=== PATIENT | female | born 1950 | race African-American/Black ===

== ENCOUNTER 2019-10-14 08:44 | Inpatient (IN) | payer MEDICARE, OTHER ==
[2019-10-14] VITALS (30 sets, daily range): BP systolic 65–129; BP diastolic 39–83
[~2019-10-14] VITALS: Ht 172.7 cm; Wt 148.3 kg
[2019-10-14] MEDS ORDERED: SODIUM CHLORIDE 0.9% 1,000 ML IV ONE ×2 (09:13→16:30)
[2019-10-14 09:35] LABS: BASOPHILS % 0.8 % (0.0-2.0); EOSINOPHILS % 0.2 % (0.0-5.0); HEMATOCRIT. 44.3 % (36.0-48.0); HEMOGLOBIN. 14.4 g/dL (12.0-16.0); LYMPHOCYTES % 9.8 % (20.0-50.0); MEAN CORPUSCULAR HEMOGLOBIN 32.7 pg (28.0-32.0); MEAN CORPUSCULAR VOLUME 100.5 fL (81.0-99.0); MEAN PLATELET VOLUME 8.9 fl (7.4-10.4); MONOCYTES % 12.1 % (2.0-8.0); NEUTROPHILS % 77.1 % (40.0-76.0); PLATELET 223 x1000/uL (130-400); RED BLOOD CELL COUNT 4.41 mill/uL (4.2-5.4); RED CELL DISTRIBUTION WIDTH 16.1 % (11.6-14.6)
[2019-10-14 09:38] LABS: CHLORIDE 104 mEq/L (98-107); INR 2.4; PROTHROMBIN TIME 23.8 sec (9.6-11.0)
[2019-10-14] MEDS ORDERED: PIPERACILLIN/TAZ 3.375G PREMIX 50 ML IV ONE (10:15)
[2019-10-14] MEDS ORDERED: SODIUM CHLORIDE 0.9% 1000ML BAG (SEPSIS BOLUS) IV ONE (10:15)
[2019-10-14 10:59] LABS: CLARITY URINE CLEAR (CLEAR); COLOR URINE YELLOW (YELLOW); KETONES URINE TRACE (NEGATIVE); LEUKOCYTE ESTERASE URINE TRACE (NEGATIVE); NITRITE URINE NEGATIVE (NEGATIVE); OCCULT BLOOD URINE NEGATIVE (NEGATIVE); PH URINE 5.5 (4.5-8.0); PROTEIN URINE NEGATIVE (NEGATIVE); SPECIFIC GRAVITY URINE 1.016 (1.005-1.030)
[2019-10-14] MEDS ORDERED: ACETAMINOPHEN 325MG TABLET PO ONE (11:15)
[2019-10-14] MEDS ORDERED: IBUPROFEN 400MG TABLET PO ONE (12:30)
[2019-10-14] MEDS ORDERED: ACETAMINOPHEN 325MG TABLET PO PRN (13:00)
[2019-10-14] MEDS ORDERED: ONDANSETRON HCL 4MG/2ML INJ IV PRN ×2 (13:00→16:15)
[2019-10-14] MEDS ORDERED: PIPERACILLIN/TAZOBACTAM 3.375 G in DEXT 5% WATER 100 ML IV SCH (13:00)
[2019-10-14] MEDS ORDERED: CEFTRIAXONE 1 G PREMIX 50 ML IV NR (14:30)
[2019-10-14] MEDS ORDERED: DEXTROSE 50% WATER 50ML SYRINGE IV PRN (14:45)
[2019-10-14] MEDS: SODIUM CHLORIDE 0.9% 1,000 ML IV SCH ×2 (16:01→19:11)
[2019-10-14] MEDS ORDERED: LORAZEPAM 2MG/ML CPJ IV PRN (16:15)
[2019-10-14] MEDS ORDERED: ENOXAPARIN 40MG/0.4ML SYR SUBCUT SCH (16:15)
[2019-10-14] MEDS ORDERED: HYDROCODONE/ACETAMINOPHEN 5/325MG TABLET PO PRN ×2 (16:15→16:30)
[2019-10-14] MEDS ORDERED: MORPHINE SULFATE 2 MG/ML CPJ (NOT FOR IM USE) IV PRN ×3 (16:15→16:30)
[2019-10-14] MEDS ORDERED: SODIUM CHLORIDE 0.9% 1,000 ML IV SCH (16:30)
[2019-10-14] MEDS ORDERED: NOREPINEPHRINE 8 MG in DEXT 5% WATER 242 ML IV PRN (16:45)
[2019-10-14] MEDS ORDERED: PIPERACILLIN/TAZOBACTAM 2.25 G in DEXTROSE 5% WATER 50 ML IV SCH ×2 (17:00→21:00)
[2019-10-14] MEDS ORDERED: METHYLPREDNISOLONE SOD SUCC 125 MG/2 ML VIAL IV SCH (17:00)
[2019-10-14] MEDS ORDERED: WARF-53 PO (17:33)
[2019-10-14] MEDS ORDERED: FAMO40TA7 PO (17:33)
[2019-10-14] MEDS ORDERED: ASPI-1393 PO (17:33)
[2019-10-14] MEDS ORDERED: POTA10CA42 PO (17:33)
[2019-10-14] MEDS ORDERED: FERR-71 PO (17:33)
[2019-10-14] MEDS ORDERED: GABA-531 PO (17:33)
[2019-10-14] MEDS ORDERED: ATOR-2 PO (17:33)
[2019-10-14] MEDS ORDERED: METF-416 PO (17:33)
[2019-10-14] MEDS ORDERED: LISI-604 PO (17:33)
[2019-10-14] MEDS ORDERED: FURO-151 PO (17:33)
[2019-10-14] MEDS ORDERED: GLIP10TA3 PO (17:33)
[2019-10-14] MEDS: BLOOD SUGAR DIAGNOSTIC STRIP TEST SCH ×2 (17:50→21:38)
[2019-10-14] MEDS: INSULIN LISPRO 100 UNITS/ML SUBCUT SCH ×2 (19:03→21:42)
[2019-10-14 23:09] LABS: CREATINE KINASE 226 IU/L (26-192)
[2019-10-14 23:10] LABS: CREATINE KINASE MB FRACTION 1.1 ng/mL (0.5-3.6)
[2019-10-15] VITALS (93 sets, daily range): BP systolic 73–147; BP diastolic 31–119
[2019-10-15] MEDS: CEFTRIAXONE 1 G PREMIX 50 ML IV SCH (03:07)
[2019-10-15] MEDS: INSULIN LISPRO 100 UNITS/ML SUBCUT SCH ×4 (06:59→21:17)
[2019-10-15 07:39] LABS: HEMATOCRIT. 43.2 % (36.0-48.0); MEAN CORPUSCULAR VOLUME 101.9 fL (81.0-99.0); MEAN PLATELET VOLUME 8.7 fl (7.4-10.4); PLATELET 196 x1000/uL (130-400); RED BLOOD CELL COUNT 4.24 mill/uL (4.2-5.4); RED CELL DISTRIBUTION WIDTH 16.3 % (11.6-14.6)
[2019-10-15 07:45] LABS: PROTHROMBIN TIME 19.9 sec (9.6-11.0)
[2019-10-15] MEDS: BLOOD SUGAR DIAGNOSTIC STRIP TEST SCH ×4 (07:45→21:12)
[2019-10-15 07:47] LABS: CHLORIDE 108 mEq/L (98-107)
[2019-10-15 07:59] LABS: CREATINE KINASE 174 IU/L (26-192)
[2019-10-15 08:01] LABS: CREATINE KINASE MB FRACTION 1.1 ng/mL (0.5-3.6)
[2019-10-15 08:14] LABS: PLATELET ESTIMATE NORMAL
[2019-10-15] MEDS: FOLIC ACID 1MG TABLET PO SCH (08:49)
[2019-10-15] MEDS: SODIUM CHLORIDE 0.9% 1,000 ML IV SCH (08:49)
[2019-10-15] MEDS: ASPIRIN 81MG EC TABLET PO SCH (09:00)
[2019-10-15] MEDS ORDERED: LIDOCAINE HCL 1% 20ML VIAL (Pyxis) INJ ONE (10:59)
[2019-10-15] MEDS: METHYLPREDNISOLONE SOD SUCC 40 MG/ML VIAL IV SCH ×2 (13:07→21:22)
[2019-10-15] MEDS: FAMOTIDINE 20MG TABLET PO SCH (21:17)
[2019-10-15] MEDS: INSULIN GLARGINE UD 100 UNITS/ML SYR SUBCUT SCH (21:17)
[2019-10-15] MEDS: ATORVASTATIN CALCIUM 40MG TABLET PO SCH (21:18)
[2019-10-16] VITALS (36 sets, daily range): BP systolic 102–157; BP diastolic 26–93
[2019-10-16] MEDS: CEFTRIAXONE 1 G PREMIX 50 ML IV SCH (02:23)
[2019-10-16] MEDS: METHYLPREDNISOLONE SOD SUCC 40 MG/ML VIAL IV SCH ×3 (05:57→21:30)
[2019-10-16 06:19] LABS: HEMATOCRIT. 40.6 % (36.0-48.0); HEMOGLOBIN. 13.3 g/dL (12.0-16.0); MEAN CORPUSCULAR HEMOGLOBIN 33.2 pg (28.0-32.0); MEAN CORPUSCULAR VOLUME 101.6 fL (81.0-99.0); MEAN PLATELET VOLUME 8.9 fl (7.4-10.4); PLATELET 198 x1000/uL (130-400); RED CELL DISTRIBUTION WIDTH 16.4 % (11.6-14.6)
[2019-10-16] MEDS: SODIUM CHLORIDE 0.9% 1,000 ML IV SCH (07:13)
[2019-10-16] MEDS: ASPIRIN 81MG EC TABLET PO SCH (08:26)
[2019-10-16] MEDS: BLOOD SUGAR DIAGNOSTIC STRIP TEST SCH ×4 (08:26→21:29)
[2019-10-16] MEDS: FOLIC ACID 1MG TABLET PO SCH (08:27)
[2019-10-16] MEDS: INSULIN LISPRO 100 UNITS/ML SUBCUT SCH ×3 (08:27→21:36)
[2019-10-16 08:28] LABS: PLATELET ESTIMATE NORMAL
[2019-10-16] MEDS ORDERED: LACTULOSE 20G/30ML UDC PO NR (10:45)
[2019-10-16] MEDS: AZITHROMYCIN 500 MG in DEXT 5% WATER 250 ML IV SCH (11:38)
[2019-10-16] MEDS ORDERED: WARFARIN SODIUM 5MG TABLET PO SCH (18:00)
[2019-10-16] MEDS: FAMOTIDINE 20MG TABLET PO SCH (21:30)
[2019-10-16] MEDS: ATORVASTATIN CALCIUM 40MG TABLET PO SCH (21:30)
[2019-10-16] MEDS: GUAIFENESIN 600MG ER TABLET PO SCH (21:31)
[2019-10-16] MEDS: IPRATROPIUM/ALBUTEROL 0.5-3(2.5)MG/3ML NEB NEB PRN (22:13)
[2019-10-16] MEDS: INSULIN GLARGINE UD 100 UNITS/ML SYR SUBCUT SCH (22:54)
[2019-10-17] VITALS: BP 143/75
[2019-10-17] MEDS: CEFTRIAXONE 1 G PREMIX 50 ML IV SCH (02:44)
[2019-10-17 04:00] VITALS: BP 142/75
[2019-10-17] MEDS: METHYLPREDNISOLONE SOD SUCC 40 MG/ML VIAL IV SCH ×3 (06:07→21:58)
[2019-10-17 06:46] LABS: INR 1.8; PROTHROMBIN TIME 17.7 sec (9.6-11.0)
[2019-10-17] MEDS: INSULIN LISPRO 100 UNITS/ML SUBCUT SCH ×4 (06:54→21:41)
[2019-10-17] MEDS: BLOOD SUGAR DIAGNOSTIC STRIP TEST SCH ×4 (06:54→21:35)
[2019-10-17 07:28] LABS: HEMATOCRIT. 45.2 % (36.0-48.0); HEMOGLOBIN. 14.5 g/dL (12.0-16.0); MEAN CORPUSCULAR HEMOGLOBIN 32.4 pg (28.0-32.0); MEAN CORPUSCULAR VOLUME 100.7 fL (81.0-99.0); MEAN PLATELET VOLUME 9.5 fl (7.4-10.4); PLATELET 195 x1000/uL (130-400); RED BLOOD CELL COUNT 4.49 mill/uL (4.2-5.4); RED CELL DISTRIBUTION WIDTH 16.1 % (11.6-14.6)
[2019-10-17] MEDS: GUAIFENESIN 600MG ER TABLET PO SCH ×2 (09:00→21:37)
[2019-10-17] MEDS: FOLIC ACID 1MG TABLET PO SCH (09:00)
[2019-10-17] MEDS: ASPIRIN 81MG EC TABLET PO SCH (09:00)
[2019-10-17] MEDS: AZITHROMYCIN 500 MG in DEXT 5% WATER 250 ML IV SCH (12:00)
[2019-10-17 12:16] LABS: NUCLEATED RED BLOOD CELLS 1 /100 WBC; PLATELET ESTIMATE NORMAL
[2019-10-17 16:00] VITALS: BP 103/64
[2019-10-17] MEDS ORDERED: WARFARIN SODIUM 3MG TABLET PO NR (18:00)
[2019-10-17 18:40] LABS: BG BASE EXCESS 0.2 mmol/L (-2.0-2.0); BG CARBOXYHEMOGLOBIN 0.9 % (0.5-1.5); BG DEOXYHEMOGLOBIN 15.7 % (0.0-5.0); BG FRACTION INSPIRED OXYGEN 21; BG HCO3 ACT 24.3 mmol/L (22.0-26.0); BG METHEMOGLOBIN 0.6 % (0.0-1.5); BG OXYGEN SATURATION 84.1 % (92.0-98.5); BG OXYHEMOGLOBIN 82.8 % (94.0-97.0); BG PCO2 37.7 mmHg (35.0-45.0); BG PH 7.427 (7.350-7.450); BG PO2 48.2 mmHg (75.0-100.0); BG SAMPLE SITE RIGHT RADIAL; BG TOTAL HEMOGLOBIN 14.7 g/dL (12.0-18.0); BG VENT MODE ROOM AIR
[2019-10-17 20:00] VITALS: BP 106/53
[2019-10-17] MEDS: IPRATROPIUM/ALBUTEROL 0.5-3(2.5)MG/3ML NEB NEB PRN (21:08)
[2019-10-17] MEDS: ATORVASTATIN CALCIUM 40MG TABLET PO SCH (21:37)
[2019-10-17] MEDS: FAMOTIDINE 20MG TABLET PO SCH (21:37)
[2019-10-17] MEDS: INSULIN GLARGINE UD 100 UNITS/ML SYR SUBCUT SCH (22:07)
[2019-10-18] VITALS: BP 131/62
[2019-10-18] MEDS: CEFTRIAXONE 1 G PREMIX 50 ML IV SCH (01:24)
[2019-10-18 04:00] VITALS: BP 129/78
[2019-10-18] MEDS: METHYLPREDNISOLONE SOD SUCC 40 MG/ML VIAL IV SCH ×3 (05:48→21:45)
[2019-10-18] MEDS: INSULIN LISPRO 100 UNITS/ML SUBCUT SCH ×4 (05:50→21:51)
[2019-10-18] MEDS: BLOOD SUGAR DIAGNOSTIC STRIP TEST SCH ×4 (05:54→20:42)
[2019-10-18 07:45] LABS: HEMATOCRIT. 44.8 % (36.0-48.0); HEMOGLOBIN. 14.4 g/dL (12.0-16.0); MEAN CORPUSCULAR HEMOGLOBIN 32.5 pg (28.0-32.0); MEAN CORPUSCULAR VOLUME 100.7 fL (81.0-99.0); MEAN PLATELET VOLUME 8.8 fl (7.4-10.4); PLATELET 173 x1000/uL (130-400); RED BLOOD CELL COUNT 4.44 mill/uL (4.2-5.4); RED CELL DISTRIBUTION WIDTH 16.3 % (11.6-14.6)
[2019-10-18 07:50] LABS: INR 2.4; PROTHROMBIN TIME 23.8 sec (9.6-11.0)
[2019-10-18 08:00] VITALS: BP 126/82
[2019-10-18] MEDS: FOLIC ACID 1MG TABLET PO SCH (09:21)
[2019-10-18] MEDS: ASPIRIN 81MG EC TABLET PO SCH (09:21)
[2019-10-18] MEDS: GUAIFENESIN 600MG ER TABLET PO SCH ×2 (09:21→21:19)
[2019-10-18] MEDS: INSULIN GLARGINE UD 100 UNITS/ML SYR SUBCUT SCH ×2 (10:56→21:51)
[2019-10-18] MEDS ORDERED: FUROSEMIDE 40MG/4ML VIAL IVP NR (11:00)
[2019-10-18] MEDS ORDERED: ONDANSETRON HCL 4MG/2ML INJ IV PRN (11:15)
[2019-10-18 12:00] VITALS: BP 100/61
[2019-10-18] MEDS: AZITHROMYCIN 500 MG in DEXT 5% WATER 250 ML IV SCH (13:24)
[2019-10-18 14:42] LABS: PLATELET ESTIMATE NORMAL
[2019-10-18 16:00] VITALS: BP 100/63
[2019-10-18] MEDS ORDERED: WARFARIN SODIUM 5MG TABLET PO SCH (18:00)
[2019-10-18 20:00] VITALS: BP 107/68
[2019-10-18] MEDS: ATORVASTATIN CALCIUM 40MG TABLET PO SCH (21:19)
[2019-10-18] MEDS: FAMOTIDINE 20MG TABLET PO SCH (21:19)
[2019-10-19] VITALS (7 sets, daily range): BP systolic 98–121; BP diastolic 60–79
[2019-10-19] MEDS: CEFTRIAXONE 1 G PREMIX 50 ML IV SCH (01:07)
[2019-10-19] MEDS: METHYLPREDNISOLONE SOD SUCC 40 MG/ML VIAL IV SCH (05:53)
[2019-10-19] MEDS: BLOOD SUGAR DIAGNOSTIC STRIP TEST SCH ×4 (06:19→21:00)
[2019-10-19] MEDS: INSULIN LISPRO 100 UNITS/ML SUBCUT SCH ×4 (06:26→21:40)
[2019-10-19 07:59] LABS: INR 3.5; PROTHROMBIN TIME 33.9 sec (9.6-11.0)
[2019-10-19 08:23] LABS: *BARBITURATES SCREEN URINE NEGATIVE (NEGATIVE); CANNABINOID URINE SCREEN NEGATIVE (NEGATIVE); OPIATES URINE SCREEN NEGATIVE (NEGATIVE); PHENCYCLIDINE URINE SCREEN NEGATIVE (NEGATIVE)
[2019-10-19 08:24] LABS: *AMPHETAMINES SCREEN URINE NEGATIVE (NEGATIVE); *BENZODIAZEPINES SCREEN URINE NEGATIVE (NEGATIVE); *COCAINE SCREEN URINE NEGATIVE (NEGATIVE); METHADONE URINE SCREEN NEGATIVE (NEGATIVE)
[2019-10-19] MEDS: ASPIRIN 81MG EC TABLET PO SCH (09:13)
[2019-10-19] MEDS: FOLIC ACID 1MG TABLET PO SCH (09:13)
[2019-10-19] MEDS: GUAIFENESIN 600MG ER TABLET PO SCH ×2 (09:32→21:15)
[2019-10-19] MEDS: INSULIN GLARGINE UD 100 UNITS/ML SYR SUBCUT SCH ×2 (10:09→22:13)
[2019-10-19] MEDS: AZITHROMYCIN 500 MG in DEXT 5% WATER 250 ML IV SCH (11:37)
[2019-10-19] MEDS ORDERED: FLUT1DIS3 INH (11:54)
[2019-10-19] MEDS ORDERED: ALBU18HF2 IH (11:54)
[2019-10-19] MEDS: FUROSEMIDE 40MG/4ML VIAL IVP SCH (13:12)
[2019-10-19] MEDS: ATORVASTATIN CALCIUM 40MG TABLET PO SCH (21:15)
[2019-10-19] MEDS: FAMOTIDINE 20MG TABLET PO SCH (21:15)
[2019-10-20] VITALS: BP 118/68
[2019-10-20] MEDS: CEFTRIAXONE 1 G PREMIX 50 ML IV SCH (00:45)
[2019-10-20 04:00] VITALS: BP 120/66
[2019-10-20] MEDS: BLOOD SUGAR DIAGNOSTIC STRIP TEST SCH ×4 (06:41→20:39)
[2019-10-20] MEDS: INSULIN LISPRO 100 UNITS/ML SUBCUT SCH ×4 (06:43→20:39)
[2019-10-20 08:57] VITALS: BP 109/49
[2019-10-20] MEDS ORDERED: PREDNISONE 20MG TABLET PO SCH (09:00)
[2019-10-20] MEDS: FUROSEMIDE 40MG/4ML VIAL IVP SCH (10:15)
[2019-10-20] MEDS: FOLIC ACID 1MG TABLET PO SCH (10:16)
[2019-10-20] MEDS: ASPIRIN 81MG EC TABLET PO SCH (10:16)
[2019-10-20] MEDS: GUAIFENESIN 600MG ER TABLET PO SCH ×2 (10:16→20:59)
[2019-10-20] MEDS: INSULIN GLARGINE UD 100 UNITS/ML SYR SUBCUT SCH ×2 (10:33→21:59)
[2019-10-20 11:41] LABS: PROTHROMBIN TIME 50.2 sec (9.6-11.0)
[2019-10-20 12:25] VITALS: BP 125/72
[2019-10-20 12:48] LABS: INR 5.3
[2019-10-20] MEDS: AZITHROMYCIN 500 MG in DEXT 5% WATER 250 ML IV SCH (13:23)
[2019-10-20 15:16] LABS: HEMOGLOBIN. 13.7 g/dL (12.0-16.0); MEAN CORPUSCULAR HEMOGLOBIN 32.6 pg (28.0-32.0); MEAN CORPUSCULAR VOLUME 100.1 fL (81.0-99.0); MEAN PLATELET VOLUME 9.5 fl (7.4-10.4); PLATELET 199 x1000/uL (130-400); RED CELL DISTRIBUTION WIDTH 16.2 % (11.6-14.6)
[2019-10-20 16:28] VITALS: BP 117/61
[2019-10-20 16:35] LABS: PROTHROMBIN TIME 49.5 sec (9.6-11.0)
[2019-10-20 16:40] LABS: INR 5.2
[2019-10-20 17:00] LABS: PLATELET ESTIMATE NORMAL
[2019-10-20] MEDS: FAMOTIDINE 20MG TABLET PO SCH (20:58)
[2019-10-20] MEDS: ATORVASTATIN CALCIUM 40MG TABLET PO SCH (20:59)
[2019-10-20 21:06] VITALS: BP 124/66
== END 2019-10-20 22:42 | disposition short-term general hospital (02) | DRG 871 ==
LOC: ER 09:05 → 5EST 11:14 → EDBEDREQTM 11:17 → EDBEDREQ 11:17 → ENRESERV 12:14 → CVICU 16:40 → 8WST 10-16 13:10
PROVIDERS: ADMIT Internal Medicine Nephrology; ATTEND Internal Medicine Nephrology
DX: A41.9 Sepsis, unspecified organism (principal); R65.21 Severe sepsis with septic shock; N17.0 Acute kidney failure with tubular necrosis; I50.33 Acute on chronic diastolic (congestive) heart failure; J18.9 Pneumonia, unspecified organism; J96.21 Acute and chronic respiratory failure with hypoxia; E44.0 Moderate protein-calorie malnutrition; E87.2 Acidosis; D68.9 Coagulation defect, unspecified; Z68.42 Body mass index [BMI] 45.0-49.9, adult; I11.0 Hypertensive heart disease with heart failure; E78.5 Hyperlipidemia, unspecified; E11.9 Type 2 diabetes mellitus without complications; S30.1XXA Contusion of abdominal wall, initial encounter; X58.XXXA Exposure to other specified factors, initial encounter; K80.20 Calculus of gallbladder without cholecystitis without obstruction; R59.0 Localized enlarged lymph nodes; K76.0 Fatty (change of) liver, not elsewhere classified; T45.515A Adverse effect of anticoagulants, initial encounter; E78.00 Pure hypercholesterolemia, unspecified; F17.200 Nicotine dependence, unspecified, uncomplicated; K44.9 Diaphragmatic hernia without obstruction or gangrene; Z79.84 Long term (current) use of oral hypoglycemic drugs; Y93.89 Activity, other specified; Y92.89 Other specified places as the place of occurrence of the external cause; Y99.8 Other external cause status; Z79.01 Long term (current) use of anticoagulants; Z86.711 Personal history of pulmonary embolism; Z82.49 Family history of ischemic heart disease and other diseases of the circulatory system; Z90.49 Acquired absence of other specified parts of digestive tract; Z79.899 Other long term (current) drug therapy; Z79.82 Long term (current) use of aspirin; Z88.8 Allergy status to other drugs, medicaments and biological substances
CPT/HCPCS: 36415; 36600; 71045; 71250; 74176; 76536; 76770; 78580; 80048; 80305; 81003; 82375; 82550; 82553; 82805; 82962; 83036; 83605; 83880; 84145; 84484; 85379; 87804; 93005; 93306; 93970; 96365; 96375; 97162; 97166; 97530; 99291; J0456; J0696; J1815; J1940; J2405; J2543; J2920; J2930; J3490; J7030; J7040; J7060; J7620

== ENCOUNTER 2020-01-08 06:18 | Emergency (ER) | payer MEDICARE, OTHER ==
[~2020-01-08] VITALS: Ht 170.2 cm; Wt 135.8 kg
[~2020-01-08 06:18] MED LIST: ALBU18HF2 IH; ASPI-1497 PO; ATOR-2 PO; FAMO40TA7 PO; FERR-71 PO; FLUT1DIS3 INH; FURO-151 PO; GABA-531 PO; GLIP10TA3 PO; LISI-604 PO; METF-416 PO; POTA10CA42 PO; WARF-53 PO
[2020-01-08] MEDS ORDERED: ACETAMINOPHEN 325MG TABLET PO STA (06:37)
[2020-01-08] MEDS ORDERED: VANCOMYCIN 1 G PREMIX 200 ML IV ONE (06:45)
[2020-01-08] MEDS ORDERED: SODIUM CHLORIDE 0.9% 1000ML BAG (SEPSIS BOLUS) IV ONE (06:45)
[2020-01-08] MEDS ORDERED: PIPERACILLIN/TAZ 3.375G PREMIX 50 ML IV ONE (06:45)
[2020-01-08 07:14] LABS: HEMATOCRIT. 41.5 % (36.0-48.0); HEMOGLOBIN. 13.6 g/dL (12.0-16.0); MEAN CORPUSCULAR HEMOGLOBIN 31.8 pg (28.0-32.0); MEAN CORPUSCULAR VOLUME 97.3 fL (81.0-99.0); MEAN PLATELET VOLUME 8.8 fl (7.4-10.4); PLATELET 201 x1000/uL (130-400); RED BLOOD CELL COUNT 4.27 mill/uL (4.2-5.4); RED CELL DISTRIBUTION WIDTH 17.1 % (11.6-14.6)
[2020-01-08 07:21] LABS: INR 1.2; PROTHROMBIN TIME 12.9 sec (9.6-11.0)
[2020-01-08 07:22] LABS: CHLORIDE 105 mEq/L (98-107)
[2020-01-08 08:12] LABS: PLATELET ESTIMATE NORMAL
[2020-01-08] MEDS ORDERED: ONDANSETRON HCL 4MG/2ML INJ IV STA (10:20)
[2020-01-08] MEDS ORDERED: MORPHINE SULFATE 4 MG/ML CPJ (NOT FOR IM USE) IV STA (10:20)
[2020-01-08 12:54] LABS: CLARITY URINE CLOUDY (CLEAR); COLOR URINE YELLOW (YELLOW); KETONES URINE NEGATIVE (NEGATIVE); LEUKOCYTE ESTERASE URINE NEGATIVE (NEGATIVE); NITRITE URINE NEGATIVE (NEGATIVE); OCCULT BLOOD URINE NEGATIVE (NEGATIVE); PROTEIN URINE 1+ (NEGATIVE); SPECIFIC GRAVITY URINE 1.017 (1.005-1.030); UROBILINOGEN URINE 0.2 E.U./dL (0.2-1.0)
[2020-01-08 16:32] VITALS: BP 146/67
== END 2020-01-08 17:05 | disposition short-term general hospital (02) ==
LOC: ER 06:18
DX: A41.9 Sepsis, unspecified organism (principal); E11.65 Type 2 diabetes mellitus with hyperglycemia; N28.9 Disorder of kidney and ureter, unspecified; E87.2 Acidosis; I10 Essential (primary) hypertension; Z88.5 Allergy status to narcotic agent; Z79.82 Long term (current) use of aspirin; Z79.84 Long term (current) use of oral hypoglycemic drugs
CPT/HCPCS: 36415; 71045; 74176; 80053; 81003; 82962; 83605; 85025; 85610; 87040; 87086; 87804; 93005; 96365; 96366; 96368; 96375; 99291; J2270; J2405; J2543; J3370; J7030; Z7610

== ENCOUNTER 2020-03-22 08:31 | Inpatient (IN) | payer MEDICARE, OTHER ==
[2020-03-22] VITALS (36 sets, daily range): BP systolic 61–140; BP diastolic 41–76
[~2020-03-22] VITALS: Ht 172.7 cm; Wt 134.4 kg
[2020-03-22] MEDS ORDERED: DEXTROSE 50% WATER 50ML SYRINGE IV ONE ×2 (08:56→10:00)
[2020-03-22] MEDS ORDERED: PIPERACILLIN/TAZ 3.375G PREMIX 50 ML IV ONE (09:15)
[2020-03-22] MEDS ORDERED: VANCOMYCIN 1 G PREMIX 200 ML IV ONE (09:15)
[2020-03-22] MEDS ORDERED: SODIUM CHLORIDE 0.9% 1000ML BAG (SEPSIS BOLUS) IV ONE (09:15)
[2020-03-22 09:16] LABS: BASOPHILS % 0.6 % (0.0-2.0); EOSINOPHILS % 0.9 % (0.0-5.0); HEMATOCRIT. 34.8 % (36.0-48.0); HEMOGLOBIN. 11.2 g/dL (12.0-16.0); LYMPHOCYTES % 20.9 % (20.0-50.0); MEAN CORPUSCULAR HEMOGLOBIN 30.9 pg (28.0-32.0); MEAN CORPUSCULAR VOLUME 96.3 fL (81.0-99.0); MEAN PLATELET VOLUME 8.8 fl (7.4-10.4); MONOCYTES % 7.7 % (2.0-8.0); NEUTROPHILS % 69.9 % (40.0-76.0); PLATELET 264 x1000/uL (130-400); RED BLOOD CELL COUNT 3.62 mill/uL (4.2-5.4); RED CELL DISTRIBUTION WIDTH 18.3 % (11.6-14.6)
[2020-03-22] MEDS ORDERED: KETOROLAC 30MG/ML VIAL IV ONE (09:30)
[2020-03-22 09:34] LABS: CHLORIDE 106 mEq/L (98-107)
[2020-03-22] MEDS ORDERED: FUROSEMIDE 100MG/10ML VIAL IV STA (09:54)
[2020-03-22] MEDS ORDERED: CALCIUM CHLORIDE 1GM/10ML SYR IV ONE (10:00)
[2020-03-22] MEDS ORDERED: ALBUTEROL (0.083%) 2.5MG/3ML NEB HHN ONE (10:00)
[2020-03-22] MEDS ORDERED: ACETAMINOPHEN 325MG TABLET PO ONE (10:00)
[2020-03-22] MEDS ORDERED: SODIUM BICARBONATE 8.4% 1 MEQ/ML 50ML SYR IV ONE (10:00)
[2020-03-22 10:12] LABS: PROTHROMBIN TIME > 100.0 sec (9.6-11.0)
[2020-03-22 10:14] LABS: INR > 10.0
[2020-03-22 10:26] LABS: CLARITY URINE CLOUDY (CLEAR); COLOR URINE YELLOW (YELLOW); KETONES URINE TRACE (NEGATIVE); LEUKOCYTE ESTERASE URINE 2+ (NEGATIVE); NITRITE URINE NEGATIVE (NEGATIVE); OCCULT BLOOD URINE 2+ (NEGATIVE); PH URINE 5.5 (4.5-8.0); PROTEIN URINE TRACE (NEGATIVE); SPECIFIC GRAVITY URINE 1.019 (1.005-1.030)
[2020-03-22 11:52] LABS: D-DIMER < 0.19 mg/L FEU (<0.50); FIBRINOGEN 243 mg/dL (200-400)
[2020-03-22] MEDS ORDERED: TRAMADOL 50MG TABLET PO PRN (12:00)
[2020-03-22] MEDS ORDERED: DEXTROSE 50% WATER 50ML SYRINGE IV PRN (12:00)
[2020-03-22] MEDS ORDERED: IPRATROPIUM/ALBUTEROL 0.5-3(2.5)MG/3ML NEB HHN PRN (12:00)
[2020-03-22] MEDS ORDERED: ACETAMINOPHEN 325MG TABLET PO PRN ×2 (12:00)
[2020-03-22] MEDS ORDERED: GUAIFENESIN 200MG/10ML SUGAR FREE UDC PO PRN (12:00)
[2020-03-22] MEDS ORDERED: CLONIDINE 0.1MG TABLET PO PRN (12:00)
[2020-03-22] MEDS ORDERED: NITROGLYCERIN 0.4MG TABLET SL SL PRN (12:00)
[2020-03-22] MEDS ORDERED: ONDANSETRON HCL 4MG/2ML INJ IV PRN (12:00)
[2020-03-22] MEDS ORDERED: PHYTONADIONE 10 MG in DEXTROSE 5% WATER 50 ML IV NR (12:30)
[2020-03-22 12:31] LABS: C REACTIVE PROTEIN QUANT < 0.2 mg/L (0.0-3.0); CREATINE KINASE 53 IU/L (26-192)
[2020-03-22] MEDS ORDERED: SODIUM POLYSTYRENE SULFONATE 15 G/60 ML BOT PO NR (13:00)
[2020-03-22 13:29] LABS: BG BASE EXCESS 0.5 mmol/L (-2.0-2.0); BG CARBOXYHEMOGLOBIN 1.6 % (0.5-1.5); BG FRACTION INSPIRED OXYGEN 28; BG HCO3 ACT 26.3 mmol/L (22.0-26.0); BG METHEMOGLOBIN 0.2 % (0.0-1.5); BG OXYGEN SATURATION 88.8 % (92.0-98.5); BG OXYHEMOGLOBIN 87.2 % (94.0-97.0); BG PCO2 47.8 mmHg (35.0-45.0); BG PH 7.359 (7.350-7.450); BG PO2 53.6 mmHg (75.0-100.0); BG SAMPLE SITE RIGHT RADIAL; BG VENT MODE NASAL CANNULA
[2020-03-22] MEDS: BLOOD SUGAR DIAGNOSTIC STRIP TEST SCH ×3 (13:30→21:00)
[2020-03-22] MEDS ORDERED: LIDOCAINE HCL 1% 20ML VIAL (Pyxis) INJ ONE (13:35)
[2020-03-22] MEDS ORDERED: NOREPINEPHRINE 4MG/250ML PMX 250 ML IV NR (13:45)
[2020-03-22] MEDS ORDERED: PIPERACILLIN/TAZ 3.375G PREMIX 50 ML IV SCH (16:00)
[2020-03-22 16:11] LABS: TOTAL IRON BINDING CAPACITY 381 ug/dL (250-450)
[2020-03-22 16:24] LABS: FOLIC ACID (FOLATE) SERUM 19.7 ng/mL (>5.38)
[2020-03-22] MEDS ORDERED: NOREPINEPHRINE 4 MG in DEXT 5% WATER 246 ML IV ONE (18:00)
[2020-03-22] MEDS: INSULIN LISPRO 100 UNITS/ML SUBCUT SCH ×2 (18:00→21:00)
[2020-03-22] MEDS ORDERED: VANCOMYCIN 1500MG in DEXTROSE 5% WATER 250ML IV NR (18:30)
[2020-03-22] MEDS: NOREPINEPHRINE 16 MG in DEXT 5% WATER 234 ML IV PRN (19:00)
[2020-03-22 19:45] LABS: SODIUM URINE RANDOM 7 mEq/L
[2020-03-22] MEDS ORDERED: ZOLPIDEM TARTRATE 5MG TABLET PO PRN (21:00)
[2020-03-22 23:18] LABS: CREATINE KINASE MB FRACTION 1.2 ng/mL (0.5-3.6)
[2020-03-22 23:19] LABS: CREATINE KINASE 27 IU/L (26-192)
[2020-03-23] VITALS (66 sets, daily range): BP systolic 52–151; BP diastolic 21–112
[2020-03-23] MEDS: ASCORBIC ACID 500 MG TABLET PO SCH ×3 (00:20→20:07)
[2020-03-23] MEDS: FAMOTIDINE 20MG TABLET PO SCH ×2 (00:20→20:07)
[2020-03-23] MEDS: PIPERACILLIN/TAZOBACTAM 3.375 G in DEXT 5% WATER 100 ML IV SCH ×3 (00:22→20:07)
[2020-03-23] MEDS: GUAIFENESIN/DM 600MG/30MG ER TAB 12HR PO SCH ×3 (00:25→20:07)
[2020-03-23] MEDS: NOREPINEPHRINE 16 MG in DEXT 5% WATER 234 ML IV PRN ×2 (04:14→21:39)
[2020-03-23 05:49] LABS: BASOPHILS % 0.9 % (0.0-2.0); EOSINOPHILS % 3.1 % (0.0-5.0); HEMATOCRIT. 26.7 % (36.0-48.0); HEMOGLOBIN. 8.6 g/dL (12.0-16.0); LYMPHOCYTES % 14.3 % (20.0-50.0); MEAN CORPUSCULAR HEMOGLOBIN 31.3 pg (28.0-32.0); MEAN CORPUSCULAR VOLUME 96.7 fL (81.0-99.0); MEAN PLATELET VOLUME 8.6 fl (7.4-10.4); MONOCYTES % 8.5 % (2.0-8.0); NEUTROPHILS % 73.2 % (40.0-76.0); PLATELET 202 x1000/uL (130-400); RED BLOOD CELL COUNT 2.76 mill/uL (4.2-5.4); RED CELL DISTRIBUTION WIDTH 18.6 % (11.6-14.6)
[2020-03-23 05:55] LABS: CHLORIDE 107 mEq/L (98-107)
[2020-03-23 06:04] LABS: CREATINE KINASE MB FRACTION 1.4 ng/mL (0.5-3.6); LDL CHOLESTEROL 28 mg/dL (5-100)
[2020-03-23 06:05] LABS: CREATINE KINASE 27 IU/L (26-192); HDL CHOLESTEROL 31 mg/dL (40-59)
[2020-03-23 06:13] LABS: PHOSPHORUS 0.8 mg/dL (2.5-4.9)
[2020-03-23 07:04] LABS: INR 9.9
[2020-03-23 07:05] LABS: PARTIAL THROMBOPLASTIN TIME 80.8 sec (23.4-31.0)
[2020-03-23 07:07] LABS: PROTHROMBIN TIME > 100.0 sec (9.6-11.0)
[2020-03-23] MEDS: BLOOD SUGAR DIAGNOSTIC STRIP TEST SCH ×4 (07:08→21:11)
[2020-03-23] MEDS: INSULIN LISPRO 100 UNITS/ML SUBCUT SCH ×4 (07:19→21:10)
[2020-03-23] MEDS: DOCUSATE SODIUM 100MG CAPSULE PO PRN (08:01)
[2020-03-23] MEDS: ZINC SULFATE 220 MG ( 50 ) CAPSULE PO SCH (08:01)
[2020-03-23] MEDS: ASPIRIN 325MG EC TABLET PO SCH (08:01)
[2020-03-23] MEDS: MAGNESIUM/ALUMINUM HYDROXIDE/SIMETHICONE 30ML UDC PO PRN (08:01)
[2020-03-23] MEDS ORDERED: ENOXAPARIN 40MG/0.4ML SYR SUBCUT SCH (09:00)
[2020-03-23] MEDS ORDERED: SODIUM PHOS,M-BASIC-D-BASIC 30 MM in DEXT 5% WATER 500 ML IV SCH (09:00)
[2020-03-23 09:34] LABS: BG BASE EXCESS 0.3 mmol/L (-2.0-2.0); BG CARBOXYHEMOGLOBIN 0.6 % (0.5-1.5); BG DEOXYHEMOGLOBIN 5.3 % (0.0-5.0); BG FRACTION INSPIRED OXYGEN 36; BG HCO3 ACT 25.1 mmol/L (22.0-26.0); BG METHEMOGLOBIN 0.2 % (0.0-1.5); BG OXYGEN SATURATION 94.7 % (92.0-98.5); BG OXYHEMOGLOBIN 93.9 % (94.0-97.0); BG PCO2 41.3 mmHg (35.0-45.0); BG PH 7.401 (7.350-7.450); BG PO2 69.7 mmHg (75.0-100.0); BG SAMPLE SITE RIGHT RADIAL; BG TOTAL HEMOGLOBIN 8.9 g/dL (12.0-18.0); BG VENT MODE NASAL CANNULA
[2020-03-23] MEDS ORDERED: SODIUM POLYSTYRENE SULFONATE 15 G/60 ML BOT PO SCH (15:00)
[2020-03-23] MEDS: MIDODRINE HCL 5MG TABLET PO SCH ×2 (15:02→16:27)
[2020-03-23 16:40] LABS: PHOSPHORUS 2.8 mg/dL (2.5-4.9)
[2020-03-23 16:47] LABS: HEPATITIS B SURFACE AB < 3.1 mIU/mL
[2020-03-23 16:58] LABS: HEPATITIS B SURFACE ANTIGEN NEGATIVE
[2020-03-23] MEDS ORDERED: EPOETIN ALFA 10000UNITS/ML VIAL SUBCUT SCH (21:00)
[2020-03-24] VITALS (34 sets, daily range): BP systolic 75–145; BP diastolic 42–80
[2020-03-24 01:06] LABS: INR 3.5; PROTHROMBIN TIME 36.9 sec (9.6-11.0)
[2020-03-24 05:19] LABS: BASOPHILS % 1.1 % (0.0-2.0); EOSINOPHILS % 8.6 % (0.0-5.0); HEMATOCRIT. 23.3 % (36.0-48.0); HEMOGLOBIN. 7.8 g/dL (12.0-16.0); LYMPHOCYTES % 22.7 % (20.0-50.0); MEAN CORPUSCULAR HEMOGLOBIN 32.2 pg (28.0-32.0); MEAN PLATELET VOLUME 8.2 fl (7.4-10.4); MONOCYTES % 7.9 % (2.0-8.0); NEUTROPHILS % 59.7 % (40.0-76.0); PLATELET 181 x1000/uL (130-400); RED BLOOD CELL COUNT 2.43 mill/uL (4.2-5.4); RED CELL DISTRIBUTION WIDTH 18.4 % (11.6-14.6)
[2020-03-24 05:36] LABS: CHLORIDE 112 mEq/L (98-107)
[2020-03-24] MEDS: INSULIN LISPRO 100 UNITS/ML SUBCUT SCH ×3 (06:16→17:00)
[2020-03-24] MEDS: BLOOD SUGAR DIAGNOSTIC STRIP TEST SCH ×3 (06:16→16:30)
[2020-03-24] MEDS: ASPIRIN 325MG EC TABLET PO SCH (08:25)
[2020-03-24] MEDS: MAGNESIUM/ALUMINUM HYDROXIDE/SIMETHICONE 30ML UDC PO PRN (08:25)
[2020-03-24] MEDS: MIDODRINE HCL 5MG TABLET PO SCH ×3 (08:25→17:00)
[2020-03-24] MEDS: GUAIFENESIN/DM 600MG/30MG ER TAB 12HR PO SCH (08:25)
[2020-03-24] MEDS: ZINC SULFATE 220 MG ( 50 ) CAPSULE PO SCH (08:26)
[2020-03-24] MEDS: ASCORBIC ACID 500 MG TABLET PO SCH (08:26)
[2020-03-24] MEDS: DOCUSATE SODIUM 100MG CAPSULE PO PRN (08:27)
[2020-03-24] MEDS: PIPERACILLIN/TAZOBACTAM 3.375 G in DEXT 5% WATER 100 ML IV SCH (08:28)
[2020-03-24] MEDS ORDERED: SODIUM PHOS,M-BASIC-D-BASIC 20 MM in DEXT 5% WATER 243.3333 ML IV NR (10:30)
[2020-03-24] MEDS ORDERED: VANCOMYCIN 1 G PREMIX 200 ML IV SCH (11:00)
[2020-03-24] MEDS ORDERED: PHYTONADIONE 10MG/ML AMP SUBCUT NR (11:15)
[2020-03-24] MEDS ORDERED: PIPERACILLIN/TAZOBACTAM 2.25 G in DEXTROSE 5% WATER 50 ML IV SCH (14:00)
[2020-03-24] MEDS ORDERED: PANTOPRAZOLE SODIUM 40 MG/VIAL IV SCH (17:00)
== END 2020-03-24 19:58 | disposition short-term general hospital (02) | DRG 871 ==
LOC: ER 09:02 → MICUSO 10:33 → EDBEDREQTM 10:41 → EDBEDREQ 10:41 → EDBEDREQSVC 11:27 → ENRESERV 15:10
PROVIDERS: ADMIT Internal Medicine; ATTEND Internal Medicine
PROC: 06HY33Z Insertion of Infusion Device into Lower Vein, Percutaneous Approach (ICD-10-PCS; 2020-03-22)
PROC: B54BZZA Ultrasonography of Right Lower Extremity Veins, Guidance (ICD-10-PCS; 2020-03-22)
PROC: 5A1D70Z Performance of Urinary Filtration, Intermittent, Less than 6 Hours Per Day (ICD-10-PCS; 2020-03-22)
PROC: 30233K1 Transfusion of Nonautologous Frozen Plasma into Peripheral Vein, Percutaneous Approach (ICD-10-PCS; 2020-03-23)
PROC: 5A1D70Z Performance of Urinary Filtration, Intermittent, Less than 6 Hours Per Day (ICD-10-PCS; 2020-03-23)
PROC: 30233N1 Transfusion of Nonautologous Red Blood Cells into Peripheral Vein, Percutaneous Approach (ICD-10-PCS; principal; 2020-03-24)
DX: A41.9 Sepsis, unspecified organism (principal); G92 Toxic encephalopathy; J18.9 Pneumonia, unspecified organism; J96.01 Acute respiratory failure with hypoxia; N17.0 Acute kidney failure with tubular necrosis; R65.21 Severe sepsis with septic shock; E87.1 Hypo-osmolality and hyponatremia; I50.30 Unspecified diastolic (congestive) heart failure; N39.0 Urinary tract infection, site not specified; I13.0 Hypertensive heart and chronic kidney disease with heart failure and stage 1 through stage 4 chronic kidney disease, or unspecified chronic kidney disease; J44.0 Chronic obstructive pulmonary disease with (acute) lower respiratory infection; Z68.42 Body mass index [BMI] 45.0-49.9, adult; D62 Acute posthemorrhagic anemia; K92.2 Gastrointestinal hemorrhage, unspecified; E44.0 Moderate protein-calorie malnutrition; D68.8 Other specified coagulation defects; E78.5 Hyperlipidemia, unspecified; E66.01 Morbid (severe) obesity due to excess calories; E87.5 Hyperkalemia; E11.22 Type 2 diabetes mellitus with diabetic chronic kidney disease; N18.3 Chronic kidney disease, stage 3 (moderate); K74.60 Unspecified cirrhosis of liver; N28.89 Other specified disorders of kidney and ureter; E11.649 Type 2 diabetes mellitus with hypoglycemia without coma; T45.515A Adverse effect of anticoagulants, initial encounter; Z86.711 Personal history of pulmonary embolism; Z82.49 Family history of ischemic heart disease and other diseases of the circulatory system; Z79.01 Long term (current) use of anticoagulants; Z83.3 Family history of diabetes mellitus; Z90.49 Acquired absence of other specified parts of digestive tract; Z98.84 Bariatric surgery status; Y92.89 Other specified places as the place of occurrence of the external cause; Z88.5 Allergy status to narcotic agent; Z79.899 Other long term (current) drug therapy; Z79.82 Long term (current) use of aspirin; Z87.891 Personal history of nicotine dependence; Z71.3 Dietary counseling and surveillance; Z03.818 Encounter for observation for suspected exposure to other biological agents ruled out
CPT/HCPCS: 36415; 36600; 71045; 71250; 74176; 76937; 80048; 80053; 80061; 80202; 81003; 82270; 82375; 82533; 82550; 82553; 82607; 82728; 82746; 82805; 82962; 83036; 83540; 83550; 83605; 83615; 83735; 83935; 84100; 84145; 84300; 84443; 84484; 85025; 85379; 85384; 86140; 86705; 86706; 86803; 86850; 86900; 86920; 86927; 87340; 87635; 93005; 94640; 99291; C1752; C1769; J0885; J1815; J1885; J1940; J2543; J3370; J3430; J3490; J7030; J7060; P9016; P9017